=== PATIENT | female | born 1995 | race African-American/Black ===

== ENCOUNTER 2016-12-26 08:00 | Emergency (ER) | payer MEDICAID, OTHER ==
[~2016-12-26] VITALS: Ht 162.6 cm; Wt 53.0 kg
[~2016-12-26 08:00] MED LIST: MEDR150D9 IM
[2016-12-26 10:00] VITALS: BP 118/66
== END 2016-12-26 11:12 | disposition left against medical advice (07) ==
LOC: ER 09:07
DX: Z20.2 Contact with and (suspected) exposure to infections with a predominantly sexual mode of transmission (principal); Z72.51 High risk heterosexual behavior; T19.2XXA Foreign body in vulva and vagina, initial encounter; X58.XXXA Exposure to other specified factors, initial encounter; Y93.89 Activity, other specified; Y92.098 Other place in other non-institutional residence as the place of occurrence of the external cause; F12.90 Cannabis use, unspecified, uncomplicated
CPT/HCPCS: 87210; 99283